=== PATIENT | male | born 1990 ===

== ENCOUNTER 2024-01-29 11:53 | Emergency (ER) | payer OTHER, SELFPAY ==
--- NOTE | ~2024-01-29 | CT_ITS ---
EXAMINATION: CT LUMBAR SPINE CLINICAL INFORMATION: Cauda equina COMPARISON: None available. TECHNIQUE: Axial images through the lumbar spine following 100 mL Omnipaque 350 IV contrast. Sagittal and coronal reconstructions on the technologist workstation were performed. This CT examination was performed using dose optimization techniques as appropriate, variously including the following: *Automated exposure control *Adjustment of mA and/or kV according to patient size (this includes techniques or standardized protocols for targeted exams where dose is matched to indication/reason for exam; i.e. extremities or head) *Use of iterative reconstruction technique DLP: 2353 mGy-cm FINDINGS: Bone alignment is normal. No fracture or dislocation. Disc heights are preserved. At T12-L1, L1-L2, L2-L3, and L3-L4 there is no disc herniation protrusion or bulge. Spinal canal, lateral recesses and neural foramen are patent. At L4-L5 there is mild disc bulge and small central disc protrusion. No disc herniation. Spinal canal, lateral recesses and neural foramen are patent. At L5-S1 there is central disc herniation. There is moderate compression of the thecal sac. Lateral recesses and neural foramen are patent. CT/CT lumbar spine w IV con IMPRESSION: Central disc herniation with moderate compression of the thecal sac at L5-S1. Mild disc bulge and small central disc protrusion at L4-L5.
--- NOTE | 2024-01-29 12:18 | ED.BACK ---
HPI - Back Pain/Injury General Chief Complaint: Back Pain/Injury Stated Complaint: BACK PAIN X3 DAYS,UNABLE TO AMB PER EMS Time Seen by Provider: 01/29/24 11:57 Source: patient and EMS Mode of arrival: EMS Limitations: no limitations History of Present Illness HPI Narrative: Patient comes to the emergency room complaining of progressing lumbar pain for 1 week. Patient states that about a week history noticing lower back pain, radiating to both lower extremities. Patient states that yesterday he started having severe pain at night, today in the morning he was unable to stand up to the pain. Patient tried to go to the bathroom but due to the pain and unable to getting up, patient urinated on himself. Patient states that he has no urinary retention, patient states that when the pain gets so bad he urinates on himself. Patient states that he has constant pain radiating towards both legs and he gets much worse with any movement. Patient states that today when he tried to get up, besides the pain, his legs felt weak. Patient denies any drug abuse. Related Data Previous Rx's ?Medication ?Instructions ?Recorded naproxen 375 mg tablet 375 mg PO BID PRN pain #14 tabs 01/29/24 oxycodone 5 mg tablet 5 mg PO BID PRN pain #7 tabs 01/29/24 Allergies Allergy/AdvReac Type Severity Reaction Status Date / Time No Known Allergies Allergy Verified 01/29/24 12:27 Review of Systems Review of Systems: Constitutional : No Weight loss, No Fever, No Chills, No Night Sweats, No Fatigue, No Malaise ENT/Mouth : No Hearing loss, No Ear Pain, No Nasal Congestion, No Sinus Pain, No Hoarseness, No sore throat, No Rhinorrhea, No Swallowing Difficulty Eyes: No Eye Pain, No Swelling, No Redness, No Foreign Body, No Discharge, No Vision Changes Cardiovascular : No Chest Pain, No SOB, No Dyspnea on Exertion, No Orthopnea, No Edema, No Palpitations Respiratory : No Cough, No Sputum, No Wheezing, No Smoke Exposure, No Dyspnea Gastrointestinal : No Nausea, No Vomiting, No Diarrhea, No Constipation, No abdominal Pain, No Hematochezia, No Melena Genitourinary : no irregular bleeding, No Dysuria, No Urinary Frequency, No Hematuria, No Urinary Incontinence, No Urgency, No Flank Pain, No Urinary Flow Changes, No Hesitancy Musculoskeletal : Complaining of severe lumbar spine pain radiating to both legs Skin : No Skin Lesions, No rash Neuro : No Weakness, No Numbness, No Paresthesias, No Loss of Consciousness, No Dizziness, No Headache Psych : No Anxiety/Panic, No Depression, No SI/HI/AH/VH, No Social Issues, Heme/Lymph: No Bruising, No Bleeding,No Lymphadenopathy Endocrine : No Polyuria, No Polydipsia, No Temperature Intolerance FORMERLY [facility], 1928–1983 Social History Social History Advance Directives: No Advance Directives Information Provided: No Physical Exam Vital Signs: Vital Signs: Last Vital Signs Temp 98 F 01/29/24 12:22 Pulse 105 H 01/29/24 12:22 Resp 19 01/29/24 12:22 BP 149/90 H 01/29/24 12:22 Pulse Ox 98 01/29/24 12:22 O2 Del Method Room Air 01/29/24 12:22 BMI result Body Mass Index 52.8 Const: Other: Appearance: Alert. Oriented X3. No acute distress. Eyes: Pupils equal, round and reactive to light. ENT: Pharynx normal. Neck: Normal inspection. Neck supple. No lymph nodes noted. No crepitus CVS: Normal heart rate and rhythm. Pulses normal. Normal S1 and S2 Respiratory: No respiratory distress. Breath sounds normal. No Wheezing. No rales Abdomen: Soft and nontender. No rigidity. No distention. : Patient has normal sensation, no saddle anesthesia, good rectal tone Back: No pain to palpation in cervical or thoracic spine, moderate pain to palpation over the lumbar area, positive straight leg raise test on both legs, more pronounced in the right leg. Skin: Skin warm and dry. Normal skin color. Normal skin turgor. Extremities: No lower extremity edema. No Lacerations. No Rash Neuro: Oriented X 3. No motor deficit. No sensory deficit. Moving all extremities. No slurred speech. CN 2 through 12 grossly intact. Patellar reflexes difficult to assess due to patient's body habitus, patient unable to sit up due to the pain in the back. Psych: calm, cooperative, normal affect Course Course Course Narrative: -patient's labs pending -given patient's description of symptoms, it is likely that patient has sciatica versus herniated disc -ideally, patient should be getting an MRI to rule out cauda equina. However, patient's weight exceeds the limit from the MRI table, 2nd next best choice is a CT scan with contrast. -patient receiving IV morphine Medications Administered Discontinued Medications Generic Name Dose Route Start Last Admin Trade Name Diony PRN Reason Stop Dose Admin Iohexol 100 ml 01/29/24 14:24 01/29/24 14:25 Iohexol 350 Mg/Ml 75 Ml Infus..Btl IV 01/29/24 14:25 100 ml ONCE ONE Administration Morphine Sulfate 4 mg 01/29/24 12:19 01/29/24 13:18 Morphine Sulfate 4 Mg/Ml Cartridge IVPUSH 01/29/24 12:20 4 mg ONCE ONE Administration Protocol Medical Decision Making Medical Decision Making [facility] Narrative: My interpretation of labs, normal chemistry, CRP slightly elevated, ESR within normal limits. -my interpretation of CT scan, no obvious signs of cauda equina. Radiology report: Herniated discs at L4-L5 -patient states that he feels better after the initial dose of medication IV. Patient will be given 1 more dose of pain medication and is also requesting a muscle relaxant. -discussed with the patient that he will need physical therapy. -cauda equina was considered. However, given patient's physical exam, sciatica versus disc herniation was more likely. Differential Diagnosis Differential Diagnoses: The differential diagnosis associated with the presentation includes Admission/Observation Consideration of admission/observation: Escalation of care including admission/observation considered (Given patient's amount of pain and initial presentation, admission was considered) Lab Data [facility] Lab Attestation statement: I reviewed the patient's lab results. 01/29/24 13:18 Labs: Lab Results 01/29/24 01/29/24 Range/Units 13:18 15:48 ESR 15 (0-15) MM/HR Sodium 141 (135-145) mmol/L Potassium 3.7 (3.3-5.1) mmol/L Chloride 104 (96-108) mmol/L Carbon Dioxide 27 (22-29) mmol/L Anion Gap 14 (12-20) BUN 10 (9-16) mg/dL Creatinine 0.79 (0.5-1.4) mg/dL Estim Creat Clear Calc 224.5 Estimated GFR > 60 Random Glucose 92 (60-115) mg/dL Calcium 9.1 (8.4-10.2) mg/dL Total Bilirubin 0.6 (0.0-1.0) mg/dL AST 23 (5-37) U/L ALT 38 (0-40) U/L Alkaline Phosphatase 85 (39-117) U/L C-Reactive Protein 3.37 H (< or = 0.50) mg/dL Total Protein 7.6 (6.5-8.0) g/dL Albumin 4.2 (3.5-5.0) g/dL Urine Color Yellow Urine Appearance Clear Urine pH 8.0 (5.0-9.0) Ur Specific [place] >= 1.030 H (1.005-1.025) Urine Protein Trace (Neg-Trace) mg/dL Urine Glucose (UA) Negative (Negative) mg/dL Urine Ketones Trace (Negative) mg/dL Urine Blood Negative (Negative) Urine Nitrite Negative (Negative) Ur Leukocyte Esterase Negative (Negative) Urine Opiates Screen POSITIVE H (Not Detect) Ur Buprenorphine Scrn Not Detected (Not Detect) ng/mL Ur Oxycodone Screen Not Detected (Not Detect) ng/mL Urine Methadone Screen Not Detected (Not Detect) ng/mL Urine Fentanyl Screen Not Detected (Not Detect) Ur Barbiturates Screen Not Detected (Not Detect) Ur Phencyclidine Scrn Not Detected (Not Detect) Ur Amphetamines Screen Not Detected (Not Detect) U Benzodiazepines Scrn Not Detected (Not Detect) Urine Cocaine Screen Not Detected (Not Detect) U Marijuana (THC) Screen Not Detected (Not Detect) Independent Interpretation I performed an independent interpretation of an: CT Scan Radiology Impression Discussion of test interpretation with radiology: I have reviewed the radiologist's reading. Radiologist Impression: FINDINGS: Bone alignment is normal. No fracture or dislocation. Disc heights are preserved. At T12-L1, L1-L2, L2-L3, and L3-L4 there is no disc herniation protrusion or bulge. Spinal canal, lateral recesses and neural foramen are patent. At L4-L5 there is mild disc bulge and small central disc protrusion. No disc herniation. Spinal canal, lateral recesses and neural foramen are patent. At L5-S1 there is central disc herniation. There is moderate compression of the thecal sac. Lateral recesses and neural foramen are patent. CT/CT lumbar spine w IV con IMPRESSION: Central disc herniation with moderate compression of the thecal sac at L5-S1. Mild disc bulge and small central disc protrusion at L4-L5. Critical Care Time Critical Care Time Critical Care Time: Yes Total Critical Care Time: 35 Attestation: I have personally provided critical care time. Time includes review of lab data, radiology results, discussion with consultants, and monitoring for potential decompensation. Intervention performed as documented. Discharge Plan Discharge Clinical Impression: Lumbar radiculopathy, Herniation of intervertebral disc between L4 and L5 Patient Disposition: Home, Self-Care Instructions: Lumbar Radiculopathy (ED), Lower Back Exercises (ED) Additional Instructions: Please follow-up with your primary care physician tomorrow. If you have any worsening or new symptoms, please return to the emergency room or call 911 Prescriptions: New oxycodone 5 mg tablet 5 mg PO BID PRN (Reason: pain) Qty: 7 0RF Rx Instructions: Partial Fill upon patient request. naproxen 375 mg tablet 375 mg PO BID PRN (Reason: pain) Qty: 14 0RF Print Language: Romanian
[2024-01-29 12:22] VITALS: BP 149/90; BP 156/81; PULSE 100; PULSE 105; RESP 19; TEMP 36.6; O2SAT 98; BMI 52.8
[2024-01-29] MEDS: Morphine Sulfate 4 MG/ML CARTRIDGE IVPUSH (13:18)
[2024-01-29 13:41] LABS: Alanine Aminotransferase 38 U/L (0-40); Albumin Level 4.2 g/dL (3.5-5.0); Alkaline Phosphatase 85 U/L (39-117); Anion Gap 14 (12-20); Aspartate Amino Transferase 23 U/L (5-37); Bilirubin Total 0.6 mg/dL (0.0-1.0); Blood Urea Nitrogen 10 mg/dL (9-16); C Reactive Protein 3.37 mg/dL (< or = 0.50); Calcium 9.1 mg/dL (8.4-10.2); Carbon Dioxide 27 mmol/L (22-29); Chloride 104 mmol/L (96-108); Creatinine Clr Calc Pharmacy 224.5; Estimated Glomerular Filt Rate > 60; Glucose Random 92 mg/dL (60-115); Potassium 3.7 mmol/L (3.3-5.1); Sodium 141 mmol/L (135-145); Total Protein 7.6 g/dL (6.5-8.0)
[2024-01-29] MEDS: iohexoL 350 MG/ML 75 ML INFUS..BTL 100 ML IV (14:25)
[2024-01-29 14:58] LABS: Erythrocyte Sedimentation Rate 15 MM/HR (0-15)
[2024-01-29 16:08] LABS: Appearance Urine Clear; Color Urine Yellow; Glucose Urine UA Negative (Negative); Leukocyte Esterase Urine Negative (Negative); Nitrite Urine Negative (Negative); Specific Gravity - Urine >= 1.030 (1.005-1.025); Urine Blood Negative (Negative); Urine Ketones Trace mg/dL (Negative); Urine Protein Trace mg/dL (Neg-Trace)
[2024-01-29 16:19] LABS: Amphetamine Screen Urine Not Detected (Not Detect); Barbiturates, Urine Not Detected (Not Detect); Benzodiazepines Screen Urine Not Detected (Not Detect); Buprenorphine Scr Not Detected (Not Detect); Cannabinoid Screen Urine Not Detected (Not Detect); Cocaine Screen Urine Not Detected (Not Detect); Fentanyl, urine Not Detected (Not Detect); Methadone Screen, Urine Not Detected (Not Detect); Opiate Screen Urine POSITIVE (Not Detect); Oxycodone Screen Urine Not Detected (Not Detect); Phencyclidine Screen Urine Not Detected (Not Detect)
[2024-01-29] MEDS: dexAMETHasone sod phosphate 4 MG/ML VIAL 6 MG IVPUSH (17:42)
[2024-01-29] MEDS: Morphine Sulfate 2 MG/ML CARTRIDGE IVPUSH (17:42)
[2024-01-29] MEDS: Cyclobenzaprine HCl 10 MG TABLET PO (17:43)
[2024-01-29 17:46] VITALS: BP 136/94; PULSE 106; RESP 20; TEMP 36.9; O2SAT 98
[2024-01-29 18:40] VITALS: BP 184/94; PULSE 92; RESP 20; TEMP 36.8; O2SAT 98
== END 2024-01-29 19:10 | disposition home or self-care (01) ==
PROVIDERS: Emergency Provider Emergency Medicine
DX: M51.16 Intervertebral disc disorders with radiculopathy, lumbar region (principal)
CPT/HCPCS: 36415; 72132; 80053; 80307; 81003; 85652; 86140; 96374; 96375; 96376; 99284; J1100; J2270; Q9967